=== PATIENT | male | born 1970 | race Caucasian/White ===

== ENCOUNTER 2020-12-19 20:42 | Emergency (ER) | payer OTHER ==
--- NOTE | 2020-12-19 22:17 | RAD REPORT ---
EXAM DESCRIPTION: RAD - Chest Single View - 12/19/2020 10:08 pm CLINICAL HISTORY: COUGH COMPARISON: None TECHNIQUE: AP portable chest image was obtained 12/19/2020 10:08 pm . FINDINGS: Lungs are clear. Heart and vasculature are normal. No measurable pleural effusion and no p neumothorax. No acute bony abnormality seen. No acute aortic findings suspected. IMPRESSION: No acute cardiopulmonary process.
[2020-12-19 22:21] LABS: Absolute Lymphocytes (CBC) 0.8 K/uL (0.7-4.9); Basophils % 0.6 % (0-1.3); Hematocrit 46.9 % (39.6-49.0); Lymphocytes % 16.5 % (15.3-44.8); MPV 8.2 fL (7.6-11.3); RBC Red Blood Cell Count 5.24 M/uL (4.33-5.43)
[2020-12-19 22:46] LABS: BUN Blood Urea Nitrogen 7 mg/dL (7-18); Bicarbonate 28 mmol/L (21-32); Glucose Level 95 mg/dL (74-106); Potassium 3.7 mmol/L (3.5-5.1); Sodium Level 139 mmol/L (136-145); Troponin (Emerg Dept Use Only) < 0.02 ng/mL (0.0-0.045)
--- NOTE | 2020-12-19 23:04 | EDPHYS ---
Physician Documentation [facility] Name: Isaias Chandra Jr Age: 50 yrs Sex: Male : 1970 Arrival Date: 12/19/2020 Time: 20:44 Bed 12 Private MD: ED Physician Satinder Wells HPI: 12/19 21:20 This 50 yrs old Male presents to ER via Ambulatory with complaints of Cough. pkl 21:20 The patient or guardian reports cough, described as moderate, with productive sputum, pkl that is white. Onset: The symptoms/episode began/occurred 10 day(s) ago. Associated signs and symptoms: Pertinent positives: chest pain, with cough. Patient exposed to co-worker diagnosed with Covid 19. Historical: - Allergies: 21:05 No Known Allergies; df1 - Home Meds: 21:06 None [Active]; df1 - PMHx: 21:06 None; df1 - PSHx: 21:06 None; df1 - Immunization history:: Adult Immunizations up to date, Pneumococcal vaccine is not up to date, Flu vaccine is not up to date. - Social history:: Smoking status: Patient reports the use of cigarette tobacco products, smokes one pack cigarettes per day. Patient uses alcohol, on a daily basis. - Family history:: not pertinent. - Code Status:: Full code. ROS: 21:20 Eyes: Negative for injury, pain, redness, and discharge, ENT: Negative for injury, pkl pain, and discharge, Neck: Negative for injury, pain, and swelling. 21:20 Cardiovascular: Positive for chest pain, with cough. 21:20 Respiratory: Positive for cough, with clear sputum. 21:20 Abdomen/GI: Negative for abdominal pain, nausea, vomiting, and diarrhea. 21:20 Back: Negative for acute changes. 21:20 : Negative for urinary symptoms. 21:20 MS/extremity: Negative for acute changes. 21:20 Skin: Negative for rash. 21:20 Neuro: Negative for altered mental status, loss of consciousness. Exam: 21:20 Head/Face: Normocephalic, atraumatic. Eyes: Pupils equal round and reactive to light, pkl extra-ocular motions intact. Lids and lashes normal. Conjunctiva and sclera are non-icteric and not injected. Cornea within normal limits. Periorbital areas with no swelling, redness, or edema. ENT: Nares patent. No nasal discharge, no septal abnormalities noted. Tympanic membranes are normal and external auditory canals are clear. Oropharynx with no redness, swelling, or masses, exudates, or evidence of obstruction, uvula midline. Mucous membranes moist. Neck: Trachea midline, no thyromegaly or masses palpated, and no cervical lymphadenopathy. Supple, full range of motion without nuchal rigidity, or vertebral point tenderness. No Meningismus. Chest/axilla: Normal chest wall appearance and motion. Nontender with no deformity. No lesions are appreciated. Cardiovascular: Regular rate and rhythm with a normal S1 and S2. No gallops, murmurs, or rubs. Normal PMI, no JVD. No pulse deficits. Respiratory: Lungs have equal breath sounds bilaterally, clear to auscultation and percussion. No rales, rhonchi or wheezes noted. No increased work of breathing, no retractions or nasal flaring. Abdomen/GI: Soft, non-tender, with normal bowel sounds. No distension or tympany. No guarding or rebound. No evidence of tenderness throughout. Back: No spinal tenderness. No costovertebral tenderness. Full range of motion. Skin: Warm, dry with normal turgor. Normal color with no rashes, no lesions, and no evidence of cellulitis. MS/ Extremity: Pulses equal, no cyanosis. Neurovascular intact. Full, normal range of motion. Neuro: Awake and alert, GCS 15, oriented to person, place, time, and situation. Cranial nerves II-XII grossly intact. Motor strength 5/5 in all extremities. Sensory grossly intact. Cerebellar exam normal. Normal gait. Vital Signs: 21:00 Temp 98.7; df1 21:00 BP 128 / 82; Pulse 92; Resp 18; Pulse Ox 95% on R/A; df1 22:24 BP 143 / 77; Pulse 84; Resp 18; Pulse Ox 99% on R/A; df1 MDM: 21:06 Patient medically screened. pkl 22:56 Data reviewed: vital signs, nurses notes, lab test result(s), EKG, radiologic studies, pkl plain films. ED course: Discussed lab, EKG and CXR results with patient. Advised quarantine for 10 days. Advised to monitor O2 sat with pulse oximeter. To return evaluation if O2 sat is less than 90%. 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 Patient understood instructions. 12/19 21:14 Order name: CBC with Diff; Complete Time: 22:55 pkl 12/19 21:14 Order name: Chem 7; Complete Time: 22:55 pkl 12/19 21:14 Order name: D-Dimer; Complete Time: 22:55 pkl 12/19 21:14 Order name: Troponin (emerg Dept Use Only); Complete Time: 22:55 pkl 12/19 22:34 Order name: SARS-COV-2 RT PCR; Complete Time: 22:55 EDMS 12/19 21:14 Order name: XRAY CXR (1 view); Complete Time: 22:55 pkl 12/19 21:14 Order name: EKG; Complete Time: 21:14 pkl Administered Medications: No medications were administered Disposition Summary: 12/19/20 23:03 Discharge Ordered Location: Home pkl Problem: new pkl Symptoms: are unchanged pkl Condition: Stable pkl Diagnosis - Positive Covpd 19. Bronchitis pkl Followup: pkl - With: Private Physician - When: 2 - 3 days - Reason: Re-evaluation by your physician Discharge Instructions: - Discharge Summary Sheet pkl Forms: - Medication Reconciliation Form pkl - Thank You Letter pkl - Antibiotic Education pkl - Prescription Opioid Use pkl - Work release form df1 Prescriptions: - Zithromax Z-Lebron 250 mg Oral Tablet - take 1 tablet by ORAL route as directed for 5 days Day 1 - take two (2) tablets pkl one time. Day 2, 3, 4 , 5 take one (1) tablet once daily.; 6 tablet; Refills: 0, Product Selection Permitted Signatures: Dispatcher [employer] Satinder Madrid MD MD pkl Sarah Shah df1 Corrections: (The following items were deleted from the chart) 21: 21:04 CORONAVIRUS+ ordered. EDMS EDMS
--- NOTE | 2020-12-19 23:04 | ER ---
Nurse's Notes [facility] Name: Isaias Chandra Jr Age: 50 yrs Sex: Male : 1970 Arrival Date: 12/19/2020 Time: 20:44 Bed 12 Private MD: Diagnosis: Positive Covpd 19. Bronchitis Presentation: 12/19 21:00 Chief complaint: Patient states: cough x 10 days. Coronavirus screen: Client denies df1 travel out of the [place] in the last 14 days. Coronavirus screen: Vaccine status: Patient reports being unvaccinated. cough unrelated to allergies, Client presents with at least one sign or symptom that may indicate coronavirus-19. Ebola Screen: Patient negative for fever greater than or equal to 101.5 degrees Fahrenheit, and additional compatible Ebola Virus Disease symptoms Patient denies exposure to infectious person. Patient denies travel to an Ebola-affected area in the 21 days before illness onset. No symptoms or risks identified at this time. Initial Sepsis Screen: Does the patient meet any 2 criteria? No. Patient's initial sepsis screen is negative. Risk Assessment: Do you want to hurt yourself or someone else? Patient reports no desire to harm self or others. Onset of symptoms was December 09, 2020. Care prior to arrival: None. Activity prior to arrival: None. Transition of care: patient was not received from another setting of care. 21:00 Method Of Arrival: Ambulatory df1 21:00 Acuity: GEORGETTE 4 df1 22:21 Initial Sepsis Screen: Does the patient have a suspected source of infection? No. kg Patient's initial sepsis screen is negative. Triage Assessment: 22:19 General: Appears in no apparent distress. Behavior is calm, cooperative, appropriate kg for age, quiet. Pain: Denies pain. Historical: - Allergies: 21:05 No Known Allergies; df1 - Home Meds: 21:06 None [Active]; df1 - PMHx: 21:06 None; df1 - PSHx: 21:06 None; df1 - Immunization history:: Adult Immunizations up to date, Pneumococcal vaccine is not up to date, Flu vaccine is not up to date. - Social history:: Smoking status: Patient reports the use of cigarette tobacco products, smokes one pack cigarettes per day. Patient uses alcohol, on a daily basis. - Family history:: not pertinent. - Code Status:: Full code. Screenin:10 Abuse screen: Denies threats or abuse. Denies injuries from another. Nutritional kg screening: No deficits noted. Tuberculosis screening: No symptoms or risk factors identified. Fall Risk None identified. Assessment: 22:24 Respiratory: Breath sounds are clear bilaterally. df1 22:25 General: Appears in no apparent distress. df1 22:25 Neuro: No deficits noted. Cardiovascular: No deficits noted. GI: No deficits noted. : df1 No deficits noted. EENT: No deficits noted. Derm: No deficits noted. Musculoskeletal: No deficits noted. Vital Signs: 21:00 Temp 98.7; df1 21:00 BP 128 / 82; Pulse 92; Resp 18; Pulse Ox 95% on R/A; df1 22:24 BP 143 / 77; Pulse 84; Resp 18; Pulse Ox 99% on R/A; df1 ED Course: 20:44 Patient arrived in ED. wm 21:00 Sarah Shah is Primary Nurse. df1 21:05 Triage completed. df1 21:05 Satinder Wells MD is Attending Physician. pkl 21:06 Satinder Wells MD is Attending Physician. pkl 21:08 Arm band placed on right wrist. df1 22:07 XRAY CXR (1 view) In Process Unspecified. EDMS 22:10 Patient has correct armband on for positive identification. kg 22:10 Inserted saline lock: 20 gauge in left antecubital area, using aseptic technique. kg 22:10 No provider procedures requiring assistance completed. kg 22:35 Notified ED physician of a critical lab result(s). Covid positive. Dr Wells notified. bb 23:21 IV discontinued, No redness/swelling at site. Pressure dressing applied. df1 Administered Medications: No medications were administered Outcome: 23:03 Discharge ordered by . pkl 23:20 Discharged to home df1 23:20 Condition: good 23:20 Discharge instructions given to patient, Instructed on discharge instructions, follow up and referral plans. medication usage, Demonstrated understanding of instructions, follow-up care, medications, Prescriptions given X 1. 23:21 Patient left the ED. df1 Signatures: Dispatcher [employer] EDMS Satinder Wells MD MD pkMagdalena Gaspar RN RN Nikki Brumfield RN RN kg Anais Vines Dawn df1 Corrections: (The following items were deleted from the chart) 21:19 21:09 CORONAVIRUS+ drawn and sent. df1 EDMS
[2020-12-20 00:40] VITALS: TEMP 98.7
[2020-12-20 00:41] VITALS: BP 143/77; O2SAT 99
--- NOTE | 2020-12-20 10:05 | EKG ---
Test Date: 2020-12-19 Test Time: 22:01:19 Rug Inspector: CHAYO MEASUREMENT RESULTS: Intervals: Rate: 86 CT: 120 QRSD: 104 QT: 388 QTc: 464 [place]: P: 33 CT: 120 QRS: 74 T: 11 INTERPRETIVE STATEMENTS: Normal sinus rhythm [id number] Abnormal ECG No previous ECG available for comparison Electronically Signed On 12-20-20 10:04:36 CDT by Lew Garcia
== END 2020-12-19 23:21 | disposition home or self-care (01) ==
LOC: ER 20:42
DX: U07.1 COVID-19 (principal); J40 Bronchitis, not specified as acute or chronic; F17.210 Nicotine dependence, cigarettes, uncomplicated
CPT/HCPCS: 93005; 85025; 80048; 36415; 85379; 84484; 71045; 99283; U0003